=== PATIENT | female | born 1990 | race Two or more races ===

== ENCOUNTER 2021-10-30 13:13 | Emergency (ER) | payer OTHER ==
[~2021-10-30] VITALS: Ht 175.3 cm; Wt 83.9 kg
== END 2021-10-30 21:21 | disposition home or self-care (01) ==
LOC: ER 13:13
DX: K80.36 Calculus of bile duct with acute and chronic cholangitis without obstruction (principal); N23 Unspecified renal colic; R10.32 Left lower quadrant pain; Z20.822 Contact with and (suspected) exposure to COVID-19